=== PATIENT | female | born 1990 | race African-American/Black ===

== ENCOUNTER 2016-08-29 06:46 | Emergency (ER) | payer OTHER ==
[~2016-08-29] VITALS: Ht 175.3 cm; Wt 65.9 kg
[2016-08-29] MEDS ORDERED: PERCOCET 5MG/325MG TAB PO ONE (07:30)
[2016-08-29] MEDS ORDERED: KETOROLAC 60 MG/2 ML VIAL (J1885) IM ONE (07:30)
[2016-08-29] MEDS ORDERED: NAPR500T PO (08:44)
[2016-08-29] MEDS ORDERED: SKEL800T97 PO (08:44)
[2016-08-29 08:54] VITALS: BP 114/65
--- NOTE | 2016-09-02 15:57 | REP ---
Left hip two views AP pelvis one-view: Left hip two views: There are no comparisons. There is no fracture or dislocation. Mineralization joint spaces are normal. No calcifications or foreign bodies. No femoral head deformity. Impression: Negative left hip. AP pelvis one-view: Mineralization is normal. Sacroiliac articulations and right left hip articulations are unremarkable. There are pelvic calcifications, likely phleboliths. Impression: Essentially negative AP pelvis. Signed by Morteza Farias MD 08/29/2016 07:42 A
--- NOTE | 2016-09-02 15:57 | REP ---
Lumbar spine five views: There are no comparisons. 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 Vertebral body heights, interspacing alignment are normal. There is no spondylolysis or spondylolisthesis. The pedicles, facets and sacroiliac articulations are unremarkable. 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 Signed by Morteza Farias MD 08/29/2016 07:40 A
== END 2016-08-29 09:03 | disposition home or self-care (01) ==
LOC: M ED 07:50
DX: M54.42 Lumbago with sciatica, left side (principal)
CPT/HCPCS: 72110; 73502; 96372; 99281; J1885

== ENCOUNTER 2016-11-30 20:19 | Emergency (ER) | payer OTHER ==
[~2016-11-30] VITALS: Ht 175.3 cm; Wt 73.7 kg
[~2016-11-30 20:19] MED LIST: NAPR500T PO; SKEL800T97 PO
[2016-11-30 20:20] VITALS: BP 106/52
[2016-11-30] MEDS ORDERED: PRED20TA PO (20:44)
== END 2016-11-30 21:02 | disposition home or self-care (01) ==
LOC: M ED 20:19
DX: M70.62 Trochanteric bursitis, left hip (principal); G89.29 Other chronic pain; M25.552 Pain in left hip; Z79.899 Other long term (current) drug therapy

== ENCOUNTER 2016-12-26 20:00 | Emergency (ER) | payer OTHER ==
[~2016-12-26] VITALS: Ht 175.3 cm; Wt 71.3 kg
[2016-12-26 20:00] VITALS: BP 127/72
[~2016-12-26 20:00] MED LIST changes: +PRED20TA PO
== END 2016-12-26 21:51 | disposition left against medical advice (07) ==
LOC: M ED 20:00
DX: N93.9 Abnormal uterine and vaginal bleeding, unspecified (principal)